=== PATIENT | male | born 2000 | race Caucasian/White ===

== ENCOUNTER 2018-09-07 09:20 | Outpatient (CLI) | payer MEDICAID | END 2018-09-07 09:21 | disposition short-term general hospital (02) | LOC: EMS 09:20 | PROVIDERS: ATTEND Surgery | DX: S51.811A Laceration without foreign body of right forearm, initial encounter (principal); W25.XXXA Contact with sharp glass, initial encounter; Y92.009 Unspecified place in unspecified non-institutional (private) residence as the place of occurrence of the external cause | CPT/HCPCS: A0425; A0427; A0999 ==

== ENCOUNTER 2018-10-02 08:40 | Outpatient (CLI) | payer MEDICAID | END 2018-10-02 08:41 | disposition EMS.NT | LOC: EMS 08:40 | PROVIDERS: ATTEND Surgery | DX: R07.0 Pain in throat (principal); S69.91XA Unspecified injury of right wrist, hand and finger(s), initial encounter; Y04.2XXA Assault by strike against or bumped into by another person, initial encounter ==

== ENCOUNTER 2018-10-02 10:43 | Emergency (ER) | payer MEDICAID ==
[2018-10-02 11:04] VITALS: BP 135/65
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
[2018-10-02] MEDS ORDERED: IBUPROFEN 600 MG TABLET PO STA (12:35)
== END 2018-10-02 13:52 | disposition home or self-care (01) ==
LOC: ED 10:43
DX: R20.2 Paresthesia of skin (principal); S59.912A Unspecified injury of left forearm, initial encounter; X50.1XXA Overexertion from prolonged static or awkward postures, initial encounter; Y92.410 Unspecified street and highway as the place of occurrence of the external cause
CPT/HCPCS: 99283; 99284; A9270

== ENCOUNTER 2018-10-17 19:27 | Outpatient (CLI) | payer MEDICAID | END 2018-10-17 19:28 | disposition critical access hospital (66) | LOC: EMS 19:27 | PROVIDERS: ATTEND Surgery | DX: S01.81XA Laceration without foreign body of other part of head, initial encounter (principal); R10.30 Lower abdominal pain, unspecified; R07.89 Other chest pain; M79.651 Pain in right thigh; Y04.2XXA Assault by strike against or bumped into by another person, initial encounter | CPT/HCPCS: A0425; A0429; A0999 ==

== ENCOUNTER 2018-10-17 19:58 | Emergency (ER) | payer MEDICAID ==
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
[2018-10-17] MEDS ORDERED: ACETAMINOPHEN 325 MG TABLET PO STA (20:45)
[2018-10-17] MEDS ORDERED: IBUPROFEN 600 MG TABLET PO STA (20:45)
[2018-10-17 21:52] VITALS: BP 131/67
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
--- NOTE | 2018-10-17 21:56 | XRAY Report ---
Reason: right chest injury Procedure Date: 10/17/2018 Accession Number: [id number] / [id number] Procedure: XR - Chest 2 View X-Ray CPT Code: 61696 FULL RESULT: EXAM: CHEST RADIOGRAPHY EXAM DATE: 10/17/2018 09:25 PM. CLINICAL HISTORY: Right chest injury. COMPARISON: None. TECHNIQUE: 2 views. FINDINGS: Lungs/Pleura: No focal opacities evident. No pleural effusion. No pneumothorax. Normal volumes. Mediastinum: Heart and mediastinal contours are unremarkable. Other: None. IMPRESSION: No acute intrathoracic plain film abnormality. RADIA
== END 2018-10-17 22:08 | disposition home or self-care (01) ==
LOC: EDUNIT# → ED 19:58
DX: S00.83XA Contusion of other part of head, initial encounter (principal); S20.211A Contusion of right front wall of thorax, initial encounter; S70.11XA Contusion of right thigh, initial encounter; S60.221A Contusion of right hand, initial encounter; Y03.0XXA Assault by being hit or run over by motor vehicle, initial encounter; Y04.2XXA Assault by strike against or bumped into by another person, initial encounter; Y93.01 Activity, walking, marching and hiking; Y92.410 Unspecified street and highway as the place of occurrence of the external cause
CPT/HCPCS: 71046; 73130; 73552; 99284; A9270

== ENCOUNTER 2019-04-11 08:00 | Emergency (ER) | payer MEDICAID, OTHER ==
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
[2019-04-11] MEDS ORDERED: ACETAMINOPHEN 325 MG TABLET PO STA (08:57)
[2019-04-11] MEDS ORDERED: IBUPROFEN 600 MG TABLET PO STA (08:57)
[2019-04-11 09:13] VITALS: BP 131/73
== END 2019-04-11 09:13 | disposition home or self-care (01) ==
LOC: EDUNIT# → ED 08:00
DX: S50.01XA Contusion of right elbow, initial encounter (principal); W01.0XXA Fall on same level from slipping, tripping and stumbling without subsequent striking against object, initial encounter
CPT/HCPCS: 73080; 99283; 99284; A9270

== ENCOUNTER 2019-05-05 19:37 | Emergency (ER) | payer MEDICAID, OTHER ==
[2019-05-05] MEDS ORDERED: HYDROcod/ACETAM 5/325 MG TABLET PO STA (19:40)
[2019-05-05] MEDS ORDERED: TETANUS/DIPHTHERIA/PERTUSSIS 0.5 ML SYRINGE IM ONE (19:40)
[2019-05-05 19:41] VITALS: BP 142/69
--- NOTE | 2019-05-05 19:41 | ED Physician Documentation ---
PD HPI HEAD INJURY - Stated complaint Stated Complaint: GLF - MOUTH / LT HAND PX - History obtained from History obtained from: Patient, Police - History of Present Illness Mechanism of head injury: Fell (19-year-old gentleman presents from [facility]. He was playing basketball at about 6 PM and slipped in a puddle and face planted. He has a facial laceration, a broken tooth. Very brief loss of consciousness. Complains of left hand pain as well.) Review of Systems Constitutional: denies: Fever, Chills Nose: denies: Rhinorrhea / runny nose Throat: reports: Dental pain / toothache Cardiac: denies: Chest pain / pressure, Palpitations Respiratory: denies: Dyspnea, Cough PD PAST MEDICAL HISTORY - Past Medical History Cardiovascular: None Respiratory: None Neuro: None Endocrine/Autoimmune: None - Present Medications Home Medications: Ambulatory Orders Medication Instructions Recorded Confirmed Ibuprofen [Motrin] 600 mg PO TID PRN #15 tab 04/11/19 Amox/Clav 875/125 [Augmentin] 1 each PO Q12H #14 tablet 05/05/19 - Allergies Allergies/Adverse Reactions: Allergies Allergy/AdvReac Type Severity Reaction Status Date / Time latex Allergy Severe Rash Verified 04/11/19 08:07 - Social History Does the pt smoke?: No Smoking Status: Never smoker Does the pt drink ETOH?: No PD ED PE NORMAL - Vitals Vital signs reviewed: Yes - General General: Alert and oriented X 3, No acute distress - HEENT HEENT: Other (Has an Mejia 1 fracture and is tender. He has a swollen lower lip with a contusion on the inside and a shallow W-shaped laceration on the outside. No other facial bony tenderness.) - Neck Neck: Supple, no meningeal sign, No bony TTP - Extremities Extremities: Other (Tender to the proximal third and fourth digits of the left hand without deformity.) - Neuro Neuro: Alert and oriented X 3, Normal speech Results - Vitals Vitals: Vital Signs - 24 hr 05/05/19 19:39 Temperature 37 C Heart Rate 52 L Respiratory 18 Rate Blood Pressure 142/69 H O2 Saturation 100 Oxygen O2 Source Room air - Rads (name of study) Lhand xr Radiology: EMP read contemporaneously (normal) CT head Radiology: EMP read contemporaneously (A round 1.5 cm hypodense lesion in left anterior aspect of perimesencephalic cistern. Differential includes an arachnoid cyst, a dermoid or epidermoid cyst. Further evaluation is recommended on MRI brain with contrast. NAD) Procedures - Laceration (location) face Length in cm: 2 Wound type: Stellate, Superficial Wound Preparation: Irrigated copiously NS Skin layer closure: Dermabond Other: Tetanus booster given Complexity: Simple PD MEDICAL DECISION MAKING - Consults Consults: Discussed case with (Bren GRAVES at [facility] RE need for dental f/u, wound care, MRI head) Departure - Departure Disposition: 01 Home, Self Care Clinical Impression: Abnormal head CT Contusion of left hand Qualifiers: Encounter type: initial encounter Qualified Code(s): S60.222A - Contusion of left hand, initial encounter Lip laceration Qualifiers: Encounter type: initial encounter Qualified Code(s): S01.511A - Laceration without foreign body of lip, initial encounter Head injury Qualifiers: Encounter type: initial encounter Qualified Code(s): S09.90XA - Unspecified injury of head, initial encounter Condition: Good Instructions: ED Head Injury Closed, ED Sprain Hand Prescriptions: Amox/Clav 875/125 [Augmentin] 1 each PO Q12H #14 tablet Comments: The lower lip was Dermabonded, given the internal component and the broken tooth he was also put on antibiotics, Augmentin. He should be allowed not to shave his lower lip and chin for about 2 weeks. Needs followup brain MRI for A round 1.5 cm hypodense lesion in left anterior aspect of perimesencephalic cistern. Differential includes an arachnoid cyst, a dermoid or epidermoid cyst. Further evaluation is recommended on MRI brain with contrast. Needs to see dentist within 1 week for broken tooth.
[2019-05-05] MEDS ORDERED: AMOX/CLAV 875 MG/125 MG TABLET PO STA (20:06)
--- NOTE | 2019-05-05 20:20 | XRAY Report ---
Reason: hand inj Procedure Date: 05/05/2019 Accession Number: [id number] / [id number] Procedure: XR - Hand 3 View LT CPT Code: Final Report FULL RESULT: EXAM: LEFT HAND RADIOGRAPHY EXAM DATE: 05/05/2019 07:53 PM. CLINICAL HISTORY: Hand inj. COMPARISON: ELBOW 3 VIEW RT 04/11/2019 8:11 AM. TECHNIQUE: 3 views. FINDINGS: Bones: Normal. No fractures or bone lesions. Joints: Normal. No subluxations. Soft Tissues: Normal. No soft tissue swelling. IMPRESSION: Normal hand radiography. RADIA
--- NOTE | 2019-05-05 20:32 | CT Report ---
Reason: head inj Procedure Date: 05/05/2019 Accession Number: [id number] / [id number] Procedure: CT - HEAD WO CPT Code: Final Report FULL RESULT: EXAM: CT HEAD EXAM DATE: 05/05/2019 07:59 PM. CLINICAL HISTORY: Head inj. COMPARISON: None. TECHNIQUE: Multiaxial CT images were obtained from the foramen magnum to the vertex. Reformats: Sagittal and coronal. IV contrast: None. In accordance with CT protocol optimization, one or more of the following dose reduction techniques were utilized for this exam: automated exposure control, adjustment of mA and/or KV based on patient size, or use of iterative reconstructive technique. FINDINGS: Parenchyma: No intraparenchymal hemorrhage. No evidence of mass, midline shift, or CT findings of infarction. Brooke-white differentiation is distinct. Extraaxial Spaces: There is a round 1.5 cm hypodense lesion in left anterior aspect of perimesencephalic cistern. Differential include an arachnoid cyst, a dermoid or epidermoid cyst. Further evaluation is recommended on MRI brain with contrast. No subdural or epidural collections identified. Ventricles: Normal in size and position. Sinuses and Orbits: Imaged paranasal sinuses, orbits, and mastoids show no significant abnormality. Bones: No evidence of fracture or calvarial defect. Other: None. IMPRESSION: No acute traumatic intracranial abnormality. A round 1.5 cm hypodense lesion in left anterior aspect of perimesencephalic cistern. Differential includes an arachnoid cyst, a dermoid or epidermoid cyst. Further evaluation is recommended on MRI brain with contrast. RADIA
== END 2019-05-05 20:43 | disposition home or self-care (01) ==
LOC: ED 19:37
DX: S01.511A Laceration without foreign body of lip, initial encounter (principal); S02.5XXA Fracture of tooth (traumatic), initial encounter for closed fracture; S60.222A Contusion of left hand, initial encounter; S09.90XA Unspecified injury of head, initial encounter; W01.0XXA Fall on same level from slipping, tripping and stumbling without subsequent striking against object, initial encounter; Y93.67 Activity, basketball; Y92.149 Unspecified place in prison as the place of occurrence of the external cause; Z23 Encounter for immunization; R93.0 Abnormal findings on diagnostic imaging of skull and head, not elsewhere classified
CPT/HCPCS: 12011; 70450; 73130; 90471; 90715; 99284; A9270